=== PATIENT | female | born 1985 | race Caucasian/White ===

== ENCOUNTER 2016-09-27 04:29 | Emergency (ER) | payer OTHER ==
--- NOTE | ~2016-09-27 | CT52 ---
[facility] RADIOLOGY TEXT RESULTS PATIENT: SUSANA MURPHY LOCATION: [facility] : 87 UNIT #: [id number] AGE: [address]: Maxwell Ruby MD SEX: F ORDER DR: [id number] [facility]. [place], [place] [address] [id number] MR#: [id number] Acc #: [id number] NAME: SUSANA MURPHY : 1985 SEX: F STUDY DATE/TIME: 09/27/2016 6:02 UNIT: [facility] ROOM: STUDY DESCRIPTION: CT Cervical Spine Wo Cont Attending Physician: Maxwell Ruby Ordering Physician: Cody Carrasco M.D. Primary Care Physician: Primary Care Physician No MEDICAL IMAGING REPORT This report is preliminary unless electronic signature is present EXAM Cervical spine without contrast INDICATIONS Neck pain after fall tonight. PROCEDURE Unenhanced CT cervical spine. This CT exam was performed with one or more of the following radiation dose reduction techniques: automatic exposure control, adjustment of mA and/or kV according to patient size, and iterative reconstruction. COMPARISON None. FINDINGS Reversal of the normal cervical lordosis. Cervical bodies have normal height and otherwise alignment is preserved. The craniocervical junction and the dens are intact. No fracture. No critical central canal narrowing. IMPRESSION 1. No acute findings. 2. Reversal of the cervical lordosis is nonspecific and could be positional or related to muscle spasm. Dictated by... Elian Jordan M.D. THIS IS AN ELECTRONICALLY VERIFIED REPORT Elian Jordan M.D. at 09/28/2016 9:43 AM EED/abraham [facility] A Service [facility] RADIOLOGY TEXT RESULTS PATIENT: SUSANA MURPHY LOCATION: [facility] : 87 UNIT #: [id number] AGE: [address]: Maxwell Ruby MD SEX: F ORDER DR: TD: 09/27/2016 07:10 JOB #: [id number] MEDICAL IMAGING REPORT Page 1 of 1 COPY
--- NOTE | ~2016-09-27 | CT71 ---
[facility] A Service [facility] RADIOLOGY TEXT RESULTS PATIENT: SUSANA MURPHY LOCATION: [facility] : 87 UNIT #: [id number] AGE: [address]: Maxwell Ruby MD SEX: F ORDER DR: [id number] [facility]. [place], [place] [address] [id number] E MR#: [id number] Acc #: [id number] NAME: SUSANA MURPHY : 1985 SEX: F STUDY DATE/TIME: 09/27/2016 5:57 UNIT: [facility] ROOM: STUDY DESCRIPTION: CT Head Wo Contrast Attending Physician: Maxwell Ruby Ordering Physician: Cody Carrasco M.D. Primary Care Physician: Primary Care Physician No MEDICAL IMAGING REPORT This report is preliminary unless electronic signature is present EXAM CT head without contrast INDICATIONS Head and neck pain after fall tonight. PROCEDURE Unenhanced CT of the head. This CT exam was performed with one or more of the following radiation dose reduction techniques: automatic exposure control, adjustment of mA and/or kV according to patient size, and iterative reconstruction. COMPARISON None. FINDINGS No acute hemorrhage, abnormal mass effect, extraaxial fluid collection or hydrocephalus. No calvarial fracture. Paranasal sinuses and mastoid air cells are clear. IMPRESSION No acute intracranial findings. Dictated by... Elian Jordan M.D. THIS IS AN ELECTRONICALLY VERIFIED REPORT Elian Jordan M.D. at 09/28/2016 9:43 AM VERONICA/abraham TD: 09/27/2016 07:09 JOB #: [id number] [facility] A Service [facility] RADIOLOGY TEXT RESULTS PATIENT: SUSANA MURPHY LOCATION: [facility] : 87 UNIT #: [id number] AGE: [address]: Maxwell Ruby MD SEX: F ORDER DR: MEDICAL IMAGING REPORT Page 1 of 1 COPY
[~2016-09-27 04:29] MED LIST: FLEXERIL10 MG PO; NAPROSYN500 MG PO; NO MEDICATIONS
[2016-09-27 05:15] LABS: BASOPHIL# 0.1 X10e3 (0-0.3); BASOPHIL% 0.8 % (0-2.5); DIFF IND NO; EOSINOPHIL% 0.5 % (0.0-7.0); HEMATOCRIT 42.4 % (35.0-45.0); LYMPHOCYTE% 19.3 % (17.0-45.0); MEAN CELL VOLUME 88.8 FL (83-96); MEAN CORPUSCULAR HEMOGLOBIN 29.4 PG (28-34); MEAN CORPUSCULAR HGB CONC 33.1 g/dL (30-36); MEAN PLATELET VOLUME 10.5 FL (6.5-11.5); MONOCYTE# 0.4 X10e3 (0-1.0); MONOCYTE% 3.7 % (3.0-12.0); NEUTROPHIL# 7.9 X10e3 (1.5-7.1); NEUTROPHIL% 75.7 % (40-75); PLATELET COUNT 232 X10e3 (140-420); RED BLOOD COUNT 4.77 X10e (3.90-5.30); RED CELL DISTRIBUTION WIDTH 12.9 % (11.0-15.5); WHITE BLOOD COUNT 10.4 X10e3 (4.0-10.5)
[2016-09-27 05:42] LABS: GLOM FILT RATE Estimated 76.1 mL/min (>60); POTASSIUM 4.1 mmol/L (3.5-5.1)
[2016-09-27 05:59] LABS: AMPHETAMINE NEG (NEG); BARBITURATES NEG (NEG); BENZODIAZEPINES NEG (NEG); COCAINE NEG (NEG); MARIJUANA POS (NEG); OPIATES NEG (NEG); TRICYCLIC ANTIDEPRESSANTS NEG (NEG); U METHADONE NEG (NEG)
== END 2016-09-27 09:27 | disposition home or self-care (01) ==
LOC: CED 04:29
PROVIDERS: Emergency Medicine
DX: S01.81XA Laceration without foreign body of other part of head, initial encounter (principal); F10.129 Alcohol abuse with intoxication, unspecified; X58.XXXA Exposure to other specified factors, initial encounter; Z23 Encounter for immunization
CPT/HCPCS: 12011; 36415; 70450; 72125; 80048; 80307; 82947; 84703; 85025; 90471; 90715; 96361; 96374; 99284; G0480; J2405